=== PATIENT | female | born 1970 | race Two or more races ===

== ENCOUNTER 2020-11-08 06:00 | Day surgery (SDC) | payer OTHER ==
[~2020-11-08 06:00] MED LIST: ARMOUR PO; CRESTO PO; FENOFIBRAT PO; PEPCID AC20 MG PO; PROZAC PO; SINGULAIR10 MG PO
[2020-11-08] MEDS ORDERED: PERCOCET 5-3251 EACH PO (09:39)
== END 2020-11-08 16:10 | disposition home or self-care (01) ==
LOC: CIR.AMB 06:00
PROVIDERS: ATTEND Surgery
DX: K64.8 Other hemorrhoids (principal); K64.4 Residual hemorrhoidal skin tags; Z20.822 Contact with and (suspected) exposure to COVID-19

== ENCOUNTER 2025-08-12 15:01 | Emergency (ER) | payer OTHER ==
[~2025-08-12] VITALS: Ht 152.4 cm; Wt 65.3 kg
[~2025-08-12 15:01] MED LIST changes: +PERCOCET 5-3251 EACH PO
[2025-08-12] MEDS ORDERED: DEXAMETHASONE SODIUM PHOSP/PF 10 MG/ML VIAL IJ ONE (17:15)
[2025-08-12] MEDS ORDERED: KETOROLAC TROMETHAMINE 30 MG VIAL IM ONE (17:15)
[2025-08-12] MEDS ORDERED: CEFTRIAXONE SODIUM 1,000 MG VIAL IM ONE (17:15)
[2025-08-12] MEDS ORDERED: KETOROLAC TROMETHAMINE 30 MG VIAL ONE (18:16)
[2025-08-12] MEDS ORDERED: CEFTRIAXONE SODIUM 1,000 MG VIAL ONE (18:16)
[2025-08-12] MEDS ORDERED: DEXAMETHASONE SODIUM PHOSPHATE 4 MG/ML VIAL ONE (18:16)
[2025-08-12 18:37] LABS: BASO % 0.4 % (0.1-1.2); EOS # 0.05 (0.04-0.54); EOS % 0.9 % (0.7-7.0); LYMPH # 1.32 (1.18-3.74); LYMPH % 23.3 % (19.3-53.1); MEAN PLATELET VOLUME 9.30 fl (9.4-12.4); MONO # 0.45 (0.24-0.82); MONO % 7.9 % (4.7-12.5); NEUT # 3.81 (1.56-6.13); NEUT % 67.1 % (34.0-71.1); RED CELL DISTRIBUTION WIDTH 12.2 % (11.6-14.4)
[2025-08-12 18:58] LABS: ALT/SGPT 66.0 U/L (12-78); AST/SGOT 30.0 U/L (15-37); BILIRUBIN TOTAL 1.49 mg/dL (0.3-1.2); BUN CREA RATIO 23.0 (7.0-25.0); CREATININE SERUM 0.53 mg/dL (0.55-1.02); GFR 119.33; GLOBULINA 3.8 G/DL (2.4-3.5); GLUCOSE FASTING 101.0 mg/dL (65-100); OSMOLALITY SERUM 281.0 MOSM/KG (275-295)
[2025-08-12 20:27] LABS: COVID-19 AG NEGATIVE (NEGATIVE)
== END 2025-08-12 22:15 | disposition home or self-care (01) ==
LOC: ER 15:01
PROVIDERS: Student in an Organized Health Care Education/Training Program
DX: G43.909 Migraine, unspecified, not intractable, without status migrainosus (principal); R53.1 Weakness; I10 Essential (primary) hypertension; E11.9 Type 2 diabetes mellitus without complications; J02.9 Acute pharyngitis, unspecified; Z20.822 Contact with and (suspected) exposure to COVID-19